=== PATIENT | male | born 1995 | race Caucasian/White ===

== ENCOUNTER 2021-12-17 20:31 | Emergency (ER) | payer OTHER ==
[~2021-12-17] VITALS: Ht 182.9 cm; Wt 68.0 kg
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
--- NOTE | 2021-12-17 21:29 | NUR ---
PT OK TO DISCHARGE PER DR EDMOND. Patient discharged in custody of [facility] in stable condition. Written and verbal after care instructions given. Patient verbalizes understanding of instruction.Patient is awake and alert to self, day, and place. PT ambulatory with a steady gait
[2021-12-17 21:31] VITALS: BP 135/71
== END 2021-12-17 21:31 ==
LOC: ER 20:40
DX: S93.491A Sprain of other ligament of right ankle, initial encounter (principal); S80.811A Abrasion, right lower leg, initial encounter; Z60.2 Problems related to living alone; V49.49XA Driver injured in collision with other motor vehicles in traffic accident, initial encounter; Y93.89 Activity, other specified; Y92.413 State road as the place of occurrence of the external cause; Y99.8 Other external cause status
CPT/HCPCS: 73610-TC